=== PATIENT | female | born 1960 | race Caucasian/White ===

== ENCOUNTER 2016-09-05 16:36 | Emergency (ER) | payer SELFPAY ==
[2016-09-05] MEDS ORDERED: HYDROcodone/Acetaminophen 5/325 mg Tablet ONE (18:52)
--- NOTE | 2016-09-05 20:57 | RAD ---
THORACIC SPINE THREE VIEWS: Date: 09-05-16 FINDINGS: Some mild degenerative changes are present, mainly consisting of anterior osteophytes. These are mos t prominent in the mid thoracic region. No fracture, compression, or other acute change was noted. T he paravertebral soft tissues appear normal. See CT report to follow. IMPRESSION: No acute thoracic finding. POS: HOME
--- NOTE | 2016-09-06 03:23 | CT ---
PRELIMINARY REPORT/[facility]/EMERGENCY AFTER HOURS PROCEDURE: EXAM: CT Thoracic Spine Without Intravenous Contrast CLINICAL HISTORY: 56 years old, female; Pain; Pain in thoracic spine; Other: Bilat; Patient HX: Pt. Had a hard cough y esterday. Back pain TECHNIQUE: Axial computed tomography images of the thoracic spine without intravenous contrast. This CT exam wa s performed using one or more of the following dose reduction techniques: automated exposure control , adjustment of the mA and/or kV according to patient size, and/or use of iterative reconstruction t echnique. Coronal and sagittal reformatted images were created and reviewed. COMPARISON: No relevant prior studies available. FINDINGS: Limitations: Evaluation for disc and cord pathology along with central spinal stenosis are limited i n the absence of intrathecal contrast. Vertebrae: The vertebral body heights are well maintained with no evidence of a compression fracture . Vertebal alignment is anatomic. An acute fracture is not visualized. Discs/spinal canal/neural foramina: There is mild multilevel disc space narrowing. Soft tissues: Unremarkable. Lymph nodes: A subcarinal lymph node measures 7.8 mm in short axis. Lungs: There are mild right middle lobe opacities which are incompletely imaged. Minimal dependent g round glass opacities are found in the lower lobes and consistent with atelectasis. Other findings: There is normal imbrication of the facet joints. IMPRESSION: 1. There is no acute thoracic spine fracture or subluxation. 2. Mild right middle lobe opacities are most likely due to atelectasis, but are incompletely imaged. Thank you for allowing us to participate in the care of your patient. Dictated and Authenticated by: Lisandro Paz MD 09/05/2016 6:39 PM Central Time ([place] \T\ [place]) FINAL REPORT CT OF THE THORACIC SPINE: Date: 09-05-[address] of the thoracic spine was performed for evaluation of pain. Axial slices were acquired and then coronal and sagittal reconstructions were done. FINDINGS: No fracture, dislocation, or acute bony change was demonstrated. There is some generalized disc spac e narrowing at most thoracic levels. A few prominent bridging osteophytes are seen on the right side in the lower thoracic region. There was no evidence of central canal stenosis or foraminal stenosis . No areas of bony destruction were seen. No compressions were detected. The surrounding soft tissue s were unremarkable. An incidental finding at the margin of the images was some streaking in the right middle lobe. This could be atelectasis or scarring, but it is seen incompletely. IMPRESSION: 1. Some degenerative changes as noted but no acute thoracic spine findings to explain the patient's pain. 2. Partially imaged streaking of the right middle lobe. Atelectasis versus scar. Report in agreement with the preliminary reading by [facility]. POS: HOME
== END 2016-09-05 19:05 | disposition home or self-care (01) ==
LOC: BURERS 16:36
DX: S29.012A Strain of muscle and tendon of back wall of thorax, initial encounter (principal); J18.9 Pneumonia, unspecified organism; E03.9 Hypothyroidism, unspecified; G43.909 Migraine, unspecified, not intractable, without status migrainosus; F32.9 Major depressive disorder, single episode, unspecified; Z79.899 Other long term (current) drug therapy; X58.XXXA Exposure to other specified factors, initial encounter
CPT/HCPCS: 72072; 72128; 96372; J2270

== ENCOUNTER 2017-07-04 19:39 | Emergency (ER) | payer SELFPAY ==
[2017-07-04] MEDS ORDERED: AMOXicillin 250 MG CAP ONE (20:53)
--- NOTE | 2017-07-04 21:23 | RAD ---
CHEST TWO VIEWS 07/04/17 No prior films were available for comparison. The heart is normal in size. There are no major infiltr ates or effusions. There are a few vague densities in the left lateral lung that are probably just a confluence of markings. The mediastinum appears normal. No acute bony changes were seen. IMPRESSION: No acute thoracic finding. POS: HOME
== END 2017-07-04 20:55 | disposition home or self-care (01) ==
LOC: BURERS 19:39
DX: J20.9 Acute bronchitis, unspecified (principal); E03.9 Hypothyroidism, unspecified; G43.909 Migraine, unspecified, not intractable, without status migrainosus; F32.9 Major depressive disorder, single episode, unspecified
CPT/HCPCS: 71046; J7620